=== PATIENT | male | born 1945 | race African-American/Black ===

== ENCOUNTER 2022-08-30 19:20 | Inpatient (IN) | payer MEDICARE, MEDICAID, OTHER ==
[~2022-08-30] VITALS: Ht 170.2 cm; Wt 680.4 kg
[2022-08-30 21:33] LABS: CHLORIDE 103 mEq/L (98-107)
[2022-08-30 21:42] LABS: ETHANOL BLOOD < 10 mg/dL; HEMATOCRIT. 34.2 % (42.0-52.0); HEMOGLOBIN. 10.8 g/dL (14.0-18.0); MEAN CORPUSCULAR HEMOGLOBIN 28.1 pg (28.0-32.0); MEAN CORPUSCULAR VOLUME 88.6 fL (80.0-94.0); MEAN PLATELET VOLUME 7.5 fl (7.4-10.4); PLATELET 208 x1000/uL (130-400); RED BLOOD CELL COUNT 3.85 mill/uL (4.7-6.1); RED CELL DISTRIBUTION WIDTH 17.3 % (11.6-14.6)
[2022-08-30] MEDS ORDERED: AZITHROMYCIN 500MG/250ML 250 ML IV NR (21:45)
[2022-08-30 22:10] LABS: PLATELET ESTIMATE NORMAL
[2022-08-30] MEDS ORDERED: ASPIRIN 325MG EC TABLET PO NR (22:45)
[2022-08-31] MEDS ORDERED: MAGNESIUM/ALUMINUM HYDROXIDE/SIMETHICONE 30ML UDC PO PRN
[2022-08-31] MEDS ORDERED: DOCUSATE SODIUM 100MG CAPSULE PO PRN
[2022-08-31] MEDS ORDERED: CLONIDINE 0.1MG TABLET PO PRN
[2022-08-31] MEDS ORDERED: GUAIFENESIN 200MG/10ML SUGAR FREE UDC PO PRN
[2022-08-31] MEDS ORDERED: ACETAMINOPHEN 325MG TABLET PO PRN ×2
[2022-08-31] MEDS ORDERED: IPRATROPIUM/ALBUTEROL 0.5-3(2.5)MG/3ML NEB NEB PRN
[2022-08-31] MEDS ORDERED: ONDANSETRON HCL 4MG/2ML INJ IV PRN
[2022-08-31] MEDS ORDERED: AMIO400T11 PO (03:02)
[2022-08-31] MEDS ORDERED: TAMS-11 ORI (03:02)
[2022-08-31] MEDS ORDERED: APIX5TAB PO (03:02)
[2022-08-31] MEDS ORDERED: CARV3.1242 PO (03:02)
[2022-08-31] MEDS ORDERED: ONDA4TAB50 PO (03:02)
[2022-08-31] MEDS ORDERED: LEVO50TA8 PO (03:02)
[2022-08-31] MEDS ORDERED: LATA2.5D14 EACHEYE (03:02)
[2022-08-31] MEDS ORDERED: MIRT-89 PO (03:02)
[2022-08-31] MEDS: PANTOPRAZOLE 40MG DR TABLET PO SCH (06:41)
[2022-08-31] MEDS: LEVOTHYROXINE SODIUM 50MCG TABLET PO SCH (06:41)
[2022-08-31 06:49] VITALS: BP 130/76
[2022-08-31 07:44] LABS: BASOPHILS % 0.5 % (0.0-2.0); EOSINOPHILS % 3.9 % (0.0-5.0); HEMATOCRIT. 30.8 % (42.0-52.0); LYMPHOCYTES % 34.5 % (20.0-50.0); MEAN CORPUSCULAR HEMOGLOBIN 28.2 pg (28.0-32.0); MEAN CORPUSCULAR VOLUME 86.9 fL (80.0-94.0); MEAN PLATELET VOLUME 7.5 fl (7.4-10.4); MONOCYTES % 14.4 % (2.0-8.0); NEUTROPHILS % 46.7 % (40.0-76.0); PLATELET 222 x1000/uL (130-400); RED BLOOD CELL COUNT 3.54 mill/uL (4.7-6.1); RED CELL DISTRIBUTION WIDTH 16.7 % (11.6-14.6)
[2022-08-31 08:27] VITALS: BP 104/62
[2022-08-31] MEDS ORDERED: LATANOPROST 0.005% OPHTH DROPS 2.5ML EACHEYE SCH (09:00)
[2022-08-31 09:09] LABS: CHLORIDE 104 mEq/L (98-107)
[2022-08-31 09:24] LABS: CREATINE KINASE 45 IU/L (39-308); HDL CHOLESTEROL 70 mg/dL (40-59); LDL CHOLESTEROL 82 mg/dL (5-100); T4 FREE 1.67 ng/dL (0.76-1.46); TOTAL IRON BINDING CAPACITY 341 ug/dL (250-450)
[2022-08-31] MEDS: CARVEDILOL 3.125 MG TABLET PO SCH ×2 (09:43→17:00)
[2022-08-31] MEDS: TAMSULOSIN HCL 0.4MG SR CAPSULE PO SCH (09:43)
[2022-08-31] MEDS: APIXABAN 5 MG TABLET PO SCH ×2 (09:43→17:34)
[2022-08-31] MEDS: AMIODARONE HCL 200 MG TABLET PO SCH (09:44)
[2022-08-31 09:49] LABS: FOLIC ACID (FOLATE) SERUM 3.4 ng/mL (>5.38)
[2022-08-31] MEDS ORDERED: IPRATROPIUM BROMIDE (0.02%) 0.5MG/2.5ML NEB HHN PRN (10:30)
[2022-08-31] MEDS ORDERED: ALBUTEROL (0.083%) 2.5MG/3ML NEB HHN PRN (10:30)
[2022-08-31 11:51] LABS: CLARITY URINE CLEAR (CLEAR); COLOR URINE YELLOW (YELLOW); KETONES URINE NEGATIVE (NEGATIVE); LEUKOCYTE ESTERASE URINE 3+ (NEGATIVE); NITRITE URINE POSITIVE (NEGATIVE); OCCULT BLOOD URINE NEGATIVE (NEGATIVE); PH URINE 6.5 (4.5-8.0); PROTEIN URINE NEGATIVE (NEGATIVE); SPECIFIC GRAVITY URINE 1.012 (1.005-1.030); UROBILINOGEN URINE 0.2 E.U./dL (0.2-1.0)
[2022-08-31 12:18] LABS: *AMPHETAMINES SCREEN URINE NEGATIVE (NEGATIVE); *BARBITURATES SCREEN URINE NEGATIVE (NEGATIVE); *BENZODIAZEPINES SCREEN URINE NEGATIVE (NEGATIVE); *COCAINE SCREEN URINE NEGATIVE (NEGATIVE); CANNABINOID URINE SCREEN NEGATIVE (NEGATIVE); METHADONE URINE SCREEN NEGATIVE (NEGATIVE); OPIATES URINE SCREEN NEGATIVE (NEGATIVE); PHENCYCLIDINE URINE SCREEN NEGATIVE (NEGATIVE)
[2022-08-31 12:25] VITALS: BP 104/66
[2022-08-31] MEDS: SODIUM CHLORIDE 0.9% 1,000 ML IV SCH ×3 (12:51→21:04)
[2022-08-31] MEDS: CEFTRIAXONE 1,000 MG in DEXTROSE 5% WATER 50 ML IV SCH (12:51)
[2022-08-31 16:06] VITALS: BP 98/54
[2022-08-31 17:02] LABS: CREATINE KINASE 72 IU/L (39-308)
[2022-08-31 20:00] VITALS: BP 101/66
[2022-08-31] MEDS: LATANOPROST 0.005% OPHTH DROPS 2.5ML EACHEYE SCH (21:04)
[2022-08-31] MEDS: MIRTAZAPINE 15MG TABLET PO SCH (21:04)
[2022-09-01] VITALS (7 sets, daily range): BP systolic 100–118; BP diastolic 57–64
[2022-09-01] MEDS: PANTOPRAZOLE 40MG DR TABLET PO SCH (06:02)
[2022-09-01] MEDS: SODIUM CHLORIDE 0.9% 1,000 ML IV SCH (06:03)
[2022-09-01] MEDS: LEVOTHYROXINE SODIUM 50MCG TABLET PO SCH (06:03)
[2022-09-01] MEDS: AMIODARONE HCL 200 MG TABLET PO SCH (08:57)
[2022-09-01] MEDS: TAMSULOSIN HCL 0.4MG SR CAPSULE PO SCH (08:57)
[2022-09-01] MEDS: CARVEDILOL 3.125 MG TABLET PO SCH ×2 (08:57→17:20)
[2022-09-01] MEDS: APIXABAN 5 MG TABLET PO SCH ×2 (08:57→17:20)
[2022-09-01] MEDS: CEFTRIAXONE 1,000 MG in DEXTROSE 5% WATER 50 ML IV SCH (13:31)
[2022-09-01] MEDS: LATANOPROST 0.005% OPHTH DROPS 2.5ML EACHEYE SCH (22:21)
[2022-09-01] MEDS: MIRTAZAPINE 15MG TABLET PO SCH (22:22)
[2022-09-01] MEDS ORDERED: CEFEPIME 1,000 MG in DEXTROSE 5% WATER 50 ML IV SCH (23:00)
[2022-09-02] VITALS: BP 108/69
[2022-09-02] MEDS: LEVOTHYROXINE SODIUM 50MCG TABLET PO SCH (07:18)
[2022-09-02 08:00] VITALS: BP 102/55
[2022-09-02] MEDS: CARVEDILOL 3.125 MG TABLET PO SCH ×2 (09:00→17:00)
[2022-09-02] MEDS: AMIODARONE HCL 200 MG TABLET PO SCH (09:00)
[2022-09-02] MEDS: APIXABAN 5 MG TABLET PO SCH ×2 (10:01→17:42)
[2022-09-02] MEDS: TAMSULOSIN HCL 0.4MG SR CAPSULE PO SCH (10:01)
[2022-09-02] MEDS: FAMOTIDINE 20MG TABLET PO SCH (10:01)
[2022-09-02 12:00] VITALS: BP 110/67
[2022-09-02 16:00] VITALS: BP 102/59
[2022-09-02 20:00] VITALS: BP 104/42
[2022-09-02] MEDS: MEROPENEM 1,000 MG in SODIUM CHLORIDE 0.9% 100 ML IV SCH (20:18)
[2022-09-02] MEDS: LATANOPROST 0.005% OPHTH DROPS 2.5ML EACHEYE SCH (20:47)
[2022-09-02] MEDS: MIRTAZAPINE 15MG TABLET PO SCH (20:47)
[2022-09-03] VITALS: BP 130/60
[2022-09-03 04:00] VITALS: BP 112/53
[2022-09-03] MEDS: MEROPENEM 1,000 MG in SODIUM CHLORIDE 0.9% 100 ML IV SCH (05:49)
[2022-09-03] MEDS: LEVOTHYROXINE SODIUM 50MCG TABLET PO SCH (05:49)
[2022-09-03 08:00] VITALS: BP 99/53
[2022-09-03] MEDS: CARVEDILOL 3.125 MG TABLET PO SCH ×2 (09:00→16:27)
[2022-09-03] MEDS: AMIODARONE HCL 200 MG TABLET PO SCH (09:00)
[2022-09-03] MEDS: FAMOTIDINE 20MG TABLET PO SCH (09:25)
[2022-09-03] MEDS: TAMSULOSIN HCL 0.4MG SR CAPSULE PO SCH (09:25)
[2022-09-03] MEDS: APIXABAN 5 MG TABLET PO SCH ×2 (09:25→17:35)
[2022-09-03 12:00] VITALS: BP 113/56
[2022-09-03 16:00] VITALS: BP 101/54
[2022-09-03] MEDS: MEROPENEM-0.9% SODIUM CHLORIDE 50 ML IV SCH (17:36)
[2022-09-03 20:00] VITALS: BP 102/55
[2022-09-03] MEDS: LATANOPROST 0.005% OPHTH DROPS 2.5ML EACHEYE SCH (20:44)
[2022-09-03] MEDS: MIRTAZAPINE 15MG TABLET PO SCH (20:44)
[2022-09-04] VITALS: BP 102/55
[2022-09-04 04:00] VITALS: BP 97/46
[2022-09-04] MEDS: MEROPENEM-0.9% SODIUM CHLORIDE 50 ML IV SCH (05:11)
[2022-09-04] MEDS: LEVOTHYROXINE SODIUM 50MCG TABLET PO SCH (05:12)
[2022-09-04 08:00] VITALS: BP 105/55
[2022-09-04] MEDS: CARVEDILOL 3.125 MG TABLET PO SCH (09:00)
[2022-09-04] MEDS: APIXABAN 5 MG TABLET PO SCH (09:32)
[2022-09-04] MEDS: FAMOTIDINE 20MG TABLET PO SCH (09:32)
[2022-09-04] MEDS: TAMSULOSIN HCL 0.4MG SR CAPSULE PO SCH (09:32)
[2022-09-04] MEDS: AMIODARONE HCL 200 MG TABLET PO SCH (09:33)
[2022-09-04 12:00] VITALS: BP 104/52
[2022-09-04 16:00] VITALS: BP 104/62
[2022-09-04 18:10] VITALS: BP 104/62
== END 2022-09-04 19:08 | DRG 689 ==
LOC: ER 19:20 → 7EST 23:09 → EDBEDREQTM 23:13 → EDBEDREQ 23:13 → SUPCPDRO 23:32 → UNDODISIN 09-04 18:22
PROVIDERS: ADMIT Internal Medicine; ATTEND Internal Medicine
DX: N30.00 Acute cystitis without hematuria (principal); G92.8 Other toxic encephalopathy; I13.0 Hypertensive heart and chronic kidney disease with heart failure and stage 1 through stage 4 chronic kidney disease, or unspecified chronic kidney disease; E46 Unspecified protein-calorie malnutrition; N17.9 Acute kidney failure, unspecified; I24.8 Other forms of acute ischemic heart disease; I50.20 Unspecified systolic (congestive) heart failure; I42.9 Cardiomyopathy, unspecified; Z68.45 Body mass index [BMI] 70 or greater, adult; E03.9 Hypothyroidism, unspecified; D72.819 Decreased white blood cell count, unspecified; N40.0 Benign prostatic hyperplasia without lower urinary tract symptoms; F03.90 Unspecified dementia, unspecified severity, without behavioral disturbance, psychotic disturbance, mood disturbance, and anxiety; I25.10 Atherosclerotic heart disease of native coronary artery without angina pectoris; I48.91 Unspecified atrial fibrillation; B96.20 Unspecified Escherichia coli [E. coli] as the cause of diseases classified elsewhere; K21.9 Gastro-esophageal reflux disease without esophagitis; N18.9 Chronic kidney disease, unspecified; Z86.73 Personal history of transient ischemic attack (TIA), and cerebral infarction without residual deficits; Z95.0 Presence of cardiac pacemaker; Z88.0 Allergy status to penicillin; E11.22 Type 2 diabetes mellitus with diabetic chronic kidney disease; Z79.01 Long term (current) use of anticoagulants; Z79.899 Other long term (current) drug therapy
CPT/HCPCS: 36415; 71045; 71250; 80053; 80061; 80305; 80320; 81003; 82550; 82607; 82728; 82746; 82962; 83036; 83540; 83550; 83605; 83735; 83880; 84145; 84439; 84443; 84484; 85025; 87186; 92610; 93005; 93306; 97110; 97162; 97530; 99285; C1893; J0456; J0692; J0696; J2185; J7050; J7060; G0480

== ENCOUNTER 2023-03-13 01:36 | Inpatient (IN) | payer MEDICARE, MEDICAID ==
[~2023-03-13] VITALS: Ht 170.2 cm; Wt 48.8 kg
[~2023-03-13 01:36] MED LIST: AMIO400T11 PO; APIX5TAB PO; CARV3.1242 PO; LATA2.5D14 EACHEYE; LEVO50TA8 PO; MIRT-89 PO; ONDA4TAB50 PO; TAMS-11 ORI
[2023-03-13] MEDS ORDERED: SODIUM CHLORIDE 0.9% 500 ML IV ONE (02:00)
[2023-03-13 05:58] LABS: CLARITY URINE TURBID (CLEAR); COLOR URINE ORANGE (YELLOW); GLUCOSE URINE NEGATIVE (NEGATIVE); KETONES URINE NEGATIVE (NEGATIVE); LEUKOCYTE ESTERASE URINE 3+ (NEGATIVE); NITRITE URINE POSITIVE (NEGATIVE); OCCULT BLOOD URINE 3+ (NEGATIVE); PROTEIN URINE 1+ (NEGATIVE); SPECIFIC GRAVITY URINE 1.022 (1.005-1.030); UROBILINOGEN URINE 0.2 E.U./dL (0.2-1.0)
[2023-03-13 06:01] LABS: BASOPHILS % 0.2 % (0.0-2.0); EOSINOPHILS % 0.7 % (0.0-5.0); HEMATOCRIT. 37.8 % (42.0-52.0); HEMOGLOBIN. 11.7 g/dL (14.0-18.0); LYMPHOCYTES % 17.6 % (20.0-50.0); MEAN CORPUSCULAR HEMOGLOBIN 29.4 pg (28.0-32.0); MEAN CORPUSCULAR HGB CONC 30.9 g/dL (31.0-37.0); MEAN CORPUSCULAR VOLUME 95.2 fL (80.0-94.0); MEAN PLATELET VOLUME 9.2 fl (7.4-10.4); MONOCYTES % 8.4 % (2.0-8.0); NEUTROPHILS % 73.1 % (40.0-76.0); PLATELET 157 x1000/uL (130-400); RED BLOOD CELL COUNT 3.97 mill/uL (4.7-6.1); RED CELL DISTRIBUTION WIDTH 21.1 % (11.6-14.6); WHITE BLOOD COUNT 5.5 x1000/uL (4.5-11.0)
[2023-03-13 06:08] LABS: CHLORIDE 125 mEq/L (98-107); INDEX HEMOLYSI 1 (1-3); INDEX ICTERIC 1 (1-4); INDEX LIPEMIC 1 (1-3); POTASSIUM 3.8 mEq/L (3.5-5.1)
[2023-03-13 06:11] LABS: INR 1.2; PROTHROMBIN TIME 12.3 sec (9.6-11.0)
[2023-03-13] MEDS ORDERED: LEVOFLOXACIN 500MG PREMIX 100 ML IV NR (06:15)
[2023-03-13 06:16] LABS: BACTERIA URINE 3+; RBC URINE TNTC /hpf (0-2); SQUAMOUS EPITHELIAL CELL URINE 1+ /lpf (RARE/1+); WBC URINE TNTC /hpf (0-2)
[2023-03-13 06:18] LABS: ALANINE AMINOTRANSFERASE 18 IU/L (13-61); ALBUMIN 1.9 g/dL (3.4-5.0); ASPARTATE AMINOTRANSFERASE 20 IU/L (15-37); BILIRUBIN TOTAL 0.4 mg/dL (0.1-1.0); CALCIUM 8.2 mg/dL (8.5-10.1); CARBON DIOXIDE 33 mEq/L (21-32); CREATINE KINASE 21 IU/L (39-308); CREATININE 1.1 mg/dL (0.6-1.3); ETHANOL BLOOD < 10 mg/dL (<10); GLUCOSE 81 mg/dL (70-105); NT PRO B-TYPE NATRIURETIC PEP 1875 pg/mL (5-125); PROTEIN TOTAL 6.2 g/dL (6.0-8.3); UREA NITROGEN BLOOD 27 mg/dL (7-21)
[2023-03-13 06:20] LABS: *AMPHETAMINES SCREEN URINE NEGATIVE (NEGATIVE); *BARBITURATES SCREEN URINE NEGATIVE (NEGATIVE); *BENZODIAZEPINES SCREEN URINE PRESUMTIVE POSITIVE (NEGATIVE); *COCAINE SCREEN URINE NEGATIVE (NEGATIVE); CANNABINOID URINE SCREEN NEGATIVE (NEGATIVE); ECSTASY MDMA SCREEN URINE NEGATIVE (NEGATIVE); METHADONE URINE SCREEN NEGATIVE (NEGATIVE); OPIATES URINE SCREEN NEGATIVE (NEGATIVE); PHENCYCLIDINE URINE SCREEN NEGATIVE (NEGATIVE)
[2023-03-13 06:32] LABS: TROPONIN I HIGH SENSITIVITY 282 ng/L (<78)
[2023-03-13 06:33] LABS: SODIUM 157 mEq/L (136-145)
[2023-03-13 13:15] VITALS: BP 92/40; PULSE 70; RESP 18; TEMP 98.1
[2023-03-13] MEDS: DEXTROSE 5% WATER 1,000 ML IV SCH (14:26)
[2023-03-13 16:00] VITALS: BP 114/60; PULSE 68; RESP 18; TEMP 98.6
[2023-03-13 20:00] VITALS: BP 107/57; PULSE 76; RESP 19; TEMP 97.3
[2023-03-13] MEDS: APIXABAN 5 MG TABLET PO SCH (20:16)
[2023-03-13] MEDS: MIRTAZAPINE 15MG TABLET PO SCH (20:16)
[2023-03-13] MEDS: AMIODARONE HCL 200 MG TABLET PO SCH (20:17)
[2023-03-13] MEDS ORDERED: DEXTROSE 50% WATER 50ML SYRINGE IV PRN (20:30)
[2023-03-13] MEDS: BLOOD SUGAR DIAGNOSTIC STRIP TEST SCH (20:34)
[2023-03-13] MEDS: INSULIN LISPRO 100 UNITS/ML SUBCUT SCH (20:34)
[2023-03-14] VITALS (7 sets, daily range): BP systolic 94–142; BP diastolic 53–83; PULSE 60–76; RESP 16–20; TEMP 96.8–98.2
[2023-03-14 06:46] LABS: BASOPHILS % 0.2 % (0.0-2.0); EOSINOPHILS % 0.9 % (0.0-5.0); HEMATOCRIT. 33.7 % (42.0-52.0); HEMOGLOBIN. 11.2 g/dL (14.0-18.0); LYMPHOCYTES % 18.9 % (20.0-50.0); MEAN CORPUSCULAR HGB CONC 33.2 g/dL (31.0-37.0); MEAN CORPUSCULAR VOLUME 93.3 fL (80.0-94.0); MONOCYTES % 7.7 % (2.0-8.0); NEUTROPHILS % 72.3 % (40.0-76.0); PLATELET 165 x1000/uL (130-400); RED BLOOD CELL COUNT 3.61 mill/uL (4.7-6.1); RED CELL DISTRIBUTION WIDTH 20.7 % (11.6-14.6); WHITE BLOOD COUNT 4.5 x1000/uL (4.5-11.0)
[2023-03-14] MEDS: BLOOD SUGAR DIAGNOSTIC STRIP TEST SCH ×4 (07:08→21:02)
[2023-03-14] MEDS: INSULIN LISPRO 100 UNITS/ML SUBCUT SCH ×4 (07:43→21:00)
[2023-03-14 08:59] LABS: CHLORIDE 120 mEq/L (98-107); INDEX HEMOLYSI 1 (1-3); INDEX ICTERIC 1 (1-4); INDEX LIPEMIC 1 (1-3); POTASSIUM 3.7 mEq/L (3.5-5.1); SODIUM 152 mEq/L (136-145)
[2023-03-14] MEDS: APIXABAN 5 MG TABLET PO SCH ×2 (08:59→17:59)
[2023-03-14] MEDS: AMIODARONE HCL 200 MG TABLET PO SCH (08:59)
[2023-03-14] MEDS: CARVEDILOL 3.125 MG TABLET PO SCH ×2 (09:00→17:59)
[2023-03-14] MEDS: TAMSULOSIN HCL 0.4MG SR CAPSULE PO SCH (09:00)
[2023-03-14] MEDS ORDERED: LEVOTHYROXINE SODIUM 50MCG TABLET PO SCH (09:00)
[2023-03-14 09:09] LABS: CALCIUM 8.1 mg/dL (8.5-10.1); CARBON DIOXIDE 29 mEq/L (21-32); GLUCOSE 70 mg/dL (70-105); PHOSPHORUS 2.7 mg/dL (2.5-4.9); UREA NITROGEN BLOOD 25 mg/dL (7-21)
[2023-03-14] MEDS: CEFEPIME 1,000 MG in DEXTROSE 5% WATER 50 ML IV SCH ×2 (11:25→22:00)
[2023-03-14] MEDS ORDERED: LIDOCAINE HCL 1% 10 MG/ML 10ML VIAL ONE (13:04)
[2023-03-14] MEDS ORDERED: VANCOMYCIN 1G PREMIX 200 ML IV NR (13:30)
[2023-03-14] MEDS ORDERED: IOHEXOL-300 50 ML BOTTLE IV ONE (14:09)
[2023-03-14] MEDS: DEXTROSE 5% WATER 1,000 ML IV SCH ×2 (15:10→22:10)
[2023-03-14] MEDS: MIRTAZAPINE 15MG TABLET PO SCH (21:00)
[2023-03-14] MEDS ORDERED: HYDROCODONE/ACETAMINOPHEN 5/325MG TABLET PO PRN (22:00)
[2023-03-14] MEDS ORDERED: ZOLPIDEM TARTRATE 5MG TABLET PO PRN (22:00)
[2023-03-14] MEDS ORDERED: NALOXONE HCL 0.4MG/ML VIAL IV PRN (22:00)
[2023-03-15] VITALS (7 sets, daily range): BP systolic 82–141; BP diastolic 44–66; PULSE 59–80; RESP 18–19; TEMP 96.1–97.5
[2023-03-15] MEDS ORDERED: VANCOMYCIN 500MG PREMIX 100 ML IV SCH (01:00)
[2023-03-15] MEDS: DEXTROSE 5% WATER 1,000 ML IV SCH (04:30)
[2023-03-15] MEDS: BLOOD SUGAR DIAGNOSTIC STRIP TEST SCH ×4 (07:40→20:52)
[2023-03-15] MEDS: INSULIN LISPRO 100 UNITS/ML SUBCUT SCH ×4 (08:10→20:52)
[2023-03-15] MEDS: AMIODARONE HCL 200 MG TABLET PO SCH (08:27)
[2023-03-15] MEDS: APIXABAN 5 MG TABLET PO SCH ×2 (08:28→16:13)
[2023-03-15] MEDS: CARVEDILOL 3.125 MG TABLET PO SCH ×2 (08:28→16:13)
[2023-03-15] MEDS: TAMSULOSIN HCL 0.4MG SR CAPSULE PO SCH (08:28)
[2023-03-15] MEDS: LEVOTHYROXINE SODIUM 50MCG TABLET PO SCH (08:28)
[2023-03-15 08:44] LABS: ALBUMIN 2.1 g/dL (3.4-5.0)
[2023-03-15 08:52] LABS: PREALBUMIN 9.9 mg/dL (20.0-40.0)
[2023-03-15] MEDS ORDERED: BUPROPION HCL 150MG SR TABLET PO SCH (09:00)
[2023-03-15] MEDS: CEFEPIME 1,000 MG in DEXTROSE 5% WATER 50 ML IV SCH (09:58)
[2023-03-15] MEDS: SULFAMETHOXAZOLE/TRIMETHOPRIM 800/160MG TABLET PO SCH ×2 (13:06→20:43)
[2023-03-15 16:21] LABS: BASOPHILS % 0.1 % (0.0-2.0); EOSINOPHILS % 0.2 % (0.0-5.0); HEMATOCRIT. 35.2 % (42.0-52.0); HEMOGLOBIN. 11.3 g/dL (14.0-18.0); LYMPHOCYTES % 12.2 % (20.0-50.0); MEAN CORPUSCULAR HEMOGLOBIN 30.3 pg (28.0-32.0); MEAN CORPUSCULAR VOLUME 94.5 fL (80.0-94.0); MEAN PLATELET VOLUME 9.2 fl (7.4-10.4); MONOCYTES % 9.3 % (2.0-8.0); NEUTROPHILS % 78.2 % (40.0-76.0); PLATELET 146 x1000/uL (130-400); RED BLOOD CELL COUNT 3.73 mill/uL (4.7-6.1); RED CELL DISTRIBUTION WIDTH 20.7 % (11.6-14.6); WHITE BLOOD COUNT 5.5 x1000/uL (4.5-11.0)
[2023-03-15 16:36] LABS: CHLORIDE 121 mEq/L (98-107); INDEX HEMOLYSI 1 (1-3); INDEX ICTERIC 1 (1-4); INDEX LIPEMIC 1 (1-3); POTASSIUM 3.5 mEq/L (3.5-5.1); SODIUM 151 mEq/L (136-145)
[2023-03-15 16:46] LABS: ALANINE AMINOTRANSFERASE 22 IU/L (13-61); ALBUMIN 1.9 g/dL (3.4-5.0); ASPARTATE AMINOTRANSFERASE 36 IU/L (15-37); BILIRUBIN TOTAL 0.4 mg/dL (0.1-1.0); CALCIUM 8.1 mg/dL (8.5-10.1); CARBON DIOXIDE 25 mEq/L (21-32); CREATININE 1.1 mg/dL (0.6-1.3); GLUCOSE 63 mg/dL (70-105); PROTEIN TOTAL 5.9 g/dL (6.0-8.3); UREA NITROGEN BLOOD 28 mg/dL (7-21)
[2023-03-15] MEDS ORDERED: GLUCAGON,HUMAN RECOMBINANT 1MG/VIAL IM NR (18:30)
[2023-03-15] MEDS: MIRTAZAPINE 15MG TABLET PO SCH (20:43)
[2023-03-16] VITALS: BP 97/56; PULSE 61; RESP 20; TEMP 96.6
[2023-03-16 04:00] VITALS: BP 94/54; PULSE 66; RESP 20; TEMP 96.9
[2023-03-16 06:49] LABS: EOSINOPHILS % 0.1 % (0.0-5.0); HEMATOCRIT. 37.2 % (42.0-52.0); HEMOGLOBIN. 12.4 g/dL (14.0-18.0); MEAN CORPUSCULAR HEMOGLOBIN 31.3 pg (28.0-32.0); MEAN CORPUSCULAR HGB CONC 33.4 g/dL (31.0-37.0); MEAN CORPUSCULAR VOLUME 93.6 fL (80.0-94.0); MEAN PLATELET VOLUME 9.3 fl (7.4-10.4); MONOCYTES % 4.2 % (2.0-8.0); NEUTROPHILS % 86.7 % (40.0-76.0); PLATELET 167 x1000/uL (130-400); RED BLOOD CELL COUNT 3.97 mill/uL (4.7-6.1); RED CELL DISTRIBUTION WIDTH 21.1 % (11.6-14.6); WHITE BLOOD COUNT 6.5 x1000/uL (4.5-11.0)
[2023-03-16 07:36] LABS: CHLORIDE 123 mEq/L (98-107); INDEX HEMOLYSI 1 (1-3); INDEX ICTERIC 1 (1-4); INDEX LIPEMIC 1 (1-3); POTASSIUM 3.2 mEq/L (3.5-5.1); SODIUM 155 mEq/L (136-145)
[2023-03-16 07:37] LABS: CALCIUM 8.3 mg/dL (8.5-10.1); UREA NITROGEN BLOOD 33 mg/dL (7-21)
[2023-03-16 07:40] LABS: CARBON DIOXIDE 26 mEq/L (21-32); CREATININE 1.2 mg/dL (0.6-1.3); GLUCOSE 71 mg/dL (70-105)
[2023-03-16] MEDS: BLOOD SUGAR DIAGNOSTIC STRIP TEST SCH ×4 (07:40→20:43)
[2023-03-16 08:00] VITALS: BP 83/53; PULSE 63; RESP 18; TEMP 97.1
[2023-03-16] MEDS: INSULIN LISPRO 100 UNITS/ML SUBCUT SCH ×4 (08:10→20:43)
[2023-03-16] MEDS: SULFAMETHOXAZOLE/TRIMETHOPRIM 800/160MG TABLET PO SCH ×2 (08:18→20:43)
[2023-03-16] MEDS: LEVOTHYROXINE SODIUM 50MCG TABLET PO SCH (08:18)
[2023-03-16] MEDS: TAMSULOSIN HCL 0.4MG SR CAPSULE PO SCH (08:18)
[2023-03-16] MEDS: AMIODARONE HCL 200 MG TABLET PO SCH (08:19)
[2023-03-16] MEDS: MIDODRINE HCL 5MG TABLET PO SCH ×3 (08:19→16:36)
[2023-03-16] MEDS: APIXABAN 5 MG TABLET PO SCH ×2 (08:19→16:36)
[2023-03-16] MEDS: CARVEDILOL 3.125 MG TABLET PO SCH (08:19)
[2023-03-16] MEDS ORDERED: MIDODRINE HCL 5MG TABLET PO SCH (10:00)
[2023-03-16] MEDS ORDERED: LIDOCAINE HCL 1% 10 MG/ML 10ML VIAL ONE (10:02)
[2023-03-16] MEDS ORDERED: POTASSIUM CHLORIDE 20MEQ/PACKET GT NR (10:15)
[2023-03-16] MEDS ORDERED: HEPARIN 100 UNITS/1 ML VIAL IVF PRN (10:45)
[2023-03-16 11:56] VITALS: BP 84/53; PULSE 65; RESP 18; TEMP 97.1
[2023-03-16] MEDS: DEXTROSE 5% WATER 1,000 ML IV SCH ×2 (12:02→20:43)
[2023-03-16 12:40] LABS: PHOSPHORUS 4.1 mg/dL (2.5-4.9)
[2023-03-16 15:31] VITALS: BP 89/51; PULSE 61; RESP 18; TEMP 97.1
[2023-03-16] MEDS: LACTOBACILLUS GG CAPSULE PO SCH (17:12)
[2023-03-16 20:00] VITALS: BP 100/59; PULSE 62; RESP 20; TEMP 96.5
[2023-03-16] MEDS: MIRTAZAPINE 15MG TABLET PO SCH (20:43)
[2023-03-17] VITALS: BP 102/50; PULSE 64; RESP 20; TEMP 96.8
[2023-03-17 04:00] VITALS: BP 98/52; PULSE 67; RESP 18; TEMP 97.7
[2023-03-17 05:27] LABS: BASOPHILS % 0.1 % (0.0-2.0); EOSINOPHILS % 0.1 % (0.0-5.0); HEMATOCRIT. 37.4 % (42.0-52.0); HEMOGLOBIN. 12.2 g/dL (14.0-18.0); LYMPHOCYTES % 8.3 % (20.0-50.0); MEAN CORPUSCULAR HEMOGLOBIN 30.5 pg (28.0-32.0); MEAN CORPUSCULAR HGB CONC 32.6 g/dL (31.0-37.0); MEAN CORPUSCULAR VOLUME 93.7 fL (80.0-94.0); MEAN PLATELET VOLUME 9.4 fl (7.4-10.4); MONOCYTES % 5.3 % (2.0-8.0); NEUTROPHILS % 86.2 % (40.0-76.0); PLATELET 148 x1000/uL (130-400); RED BLOOD CELL COUNT 3.99 mill/uL (4.7-6.1); RED CELL DISTRIBUTION WIDTH 21.5 % (11.6-14.6); WHITE BLOOD COUNT 7.3 x1000/uL (4.5-11.0)
[2023-03-17] MEDS: BLOOD SUGAR DIAGNOSTIC STRIP TEST SCH ×4 (07:40→21:20)
[2023-03-17 08:00] VITALS: BP_SYST 89; BP_SYST 94; BP_DIAS 51; PULSE 69; RESP 18; TEMP 97.8
[2023-03-17] MEDS: INSULIN LISPRO 100 UNITS/ML SUBCUT SCH ×4 (08:10→21:00)
[2023-03-17] MEDS: MIDODRINE HCL 5MG TABLET PO SCH ×3 (08:48→16:36)
[2023-03-17] MEDS: AMIODARONE HCL 200 MG TABLET PO SCH (08:49)
[2023-03-17] MEDS: SULFAMETHOXAZOLE/TRIMETHOPRIM 800/160MG TABLET PO SCH ×2 (08:49→21:20)
[2023-03-17] MEDS: APIXABAN 5 MG TABLET PO SCH ×2 (08:49→17:21)
[2023-03-17] MEDS: TAMSULOSIN HCL 0.4MG SR CAPSULE PO SCH (08:49)
[2023-03-17] MEDS: LEVOTHYROXINE SODIUM 50MCG TABLET PO SCH (08:51)
[2023-03-17 10:04] LABS: POTASSIUM 3.3 mEq/L (3.5-5.1)
[2023-03-17 10:06] LABS: CALCIUM 7.7 mg/dL (8.5-10.1)
[2023-03-17 10:10] LABS: CREATININE 1.4 mg/dL (0.6-1.3)
[2023-03-17 12:00] VITALS: BP 93/54; PULSE 60; RESP 17; TEMP 97.2
[2023-03-17] MEDS: DEXTROSE 5% WATER 1,000 ML IV SCH (15:41)
[2023-03-17 16:00] VITALS: BP 95/59; PULSE 59; RESP 17; TEMP 97.6
[2023-03-17] MEDS: LACTOBACILLUS GG CAPSULE PO SCH (16:37)
[2023-03-17 20:00] VITALS: BP 101/46; PULSE 60; RESP 18; TEMP 97.5
[2023-03-17] MEDS: MIRTAZAPINE 15MG TABLET PO SCH (21:20)
[2023-03-18] VITALS: BP 94/49; PULSE 66; RESP 20; TEMP 97.9
[2023-03-18 04:00] VITALS: BP 93/46; PULSE 62; RESP 18; TEMP 97.7
[2023-03-18] MEDS: DEXTROSE 5% WATER 1,000 ML IV SCH ×2 (06:33→17:01)
[2023-03-18] MEDS: BLOOD SUGAR DIAGNOSTIC STRIP TEST SCH ×3 (06:33→16:59)
[2023-03-18 08:00] VITALS: BP 91/27; PULSE 47; RESP 18; TEMP 96
[2023-03-18] MEDS: LEVOTHYROXINE SODIUM 50MCG TABLET PO SCH (08:07)
[2023-03-18] MEDS: TAMSULOSIN HCL 0.4MG SR CAPSULE PO SCH (08:07)
[2023-03-18] MEDS: APIXABAN 5 MG TABLET PO SCH ×2 (08:07→16:59)
[2023-03-18] MEDS: MIDODRINE HCL 5MG TABLET PO SCH ×3 (08:08→17:00)
[2023-03-18] MEDS: AMIODARONE HCL 200 MG TABLET PO SCH (08:08)
[2023-03-18] MEDS: SULFAMETHOXAZOLE/TRIMETHOPRIM 800/160MG TABLET PO SCH (08:08)
[2023-03-18] MEDS: INSULIN LISPRO 100 UNITS/ML SUBCUT SCH ×3 (08:10→17:00)
[2023-03-18 12:00] VITALS: BP 92/31; PULSE 50; RESP 18; TEMP 97
[2023-03-18 13:16] VITALS: BP 92/31; PULSE 50; TEMP 97; O2SAT 98
[2023-03-18 16:00] VITALS: BP 89/30; PULSE 42; RESP 18; TEMP 97.2
[2023-03-18] MEDS: LACTOBACILLUS GG CAPSULE PO SCH (17:01)
== END 2023-03-18 18:25 | DRG 640 ==
LOC: ER 01:36 → 7WST 06:05
PROVIDERS: ADMIT Internal Medicine; ATTEND Internal Medicine
PROC: 02HV33Z Insertion of Infusion Device into Superior Vena Cava, Percutaneous Approach (ICD-10-PCS; principal; 2023-03-14)
PROC: B5181ZA Fluoroscopy of Superior Vena Cava using Low Osmolar Contrast, Guidance (ICD-10-PCS; 2023-03-14)
PROC: B548ZZA Ultrasonography of Superior Vena Cava, Guidance (ICD-10-PCS; 2023-03-14)
PROC: 02HV33Z Insertion of Infusion Device into Superior Vena Cava, Percutaneous Approach (ICD-10-PCS; 2023-03-16)
PROC: B548ZZA Ultrasonography of Superior Vena Cava, Guidance (ICD-10-PCS; 2023-03-16)
DX: E87.0 Hyperosmolality and hypernatremia (principal); E43 Unspecified severe protein-calorie malnutrition; N39.0 Urinary tract infection, site not specified; I50.22 Chronic systolic (congestive) heart failure; R78.81 Bacteremia; Z68.1 Body mass index [BMI] 19.9 or less, adult; E86.0 Dehydration; J44.9 Chronic obstructive pulmonary disease, unspecified; B96.20 Unspecified Escherichia coli [E. coli] as the cause of diseases classified elsewhere; F02.80 Dementia in other diseases classified elsewhere, unspecified severity, without behavioral disturbance, psychotic disturbance, mood disturbance, and anxiety; G30.9 Alzheimer's disease, unspecified; I11.0 Hypertensive heart disease with heart failure; E03.9 Hypothyroidism, unspecified; D64.9 Anemia, unspecified; I48.91 Unspecified atrial fibrillation; E11.649 Type 2 diabetes mellitus with hypoglycemia without coma; Z88.0 Allergy status to penicillin; Z95.810 Presence of automatic (implantable) cardiac defibrillator; Z85.038 Personal history of other malignant neoplasm of large intestine
CPT/HCPCS: 36415; 36573; 71045; 74176; 80048; 80053; 80305; 80320; 81003; 82040; 82533; 82550; 82962; 83036; 83605; 83735; 83880; 83935; 84100; 84134; 84145; 84484; 85025; 87077; 87186; 93005; 93306; 93923; 99285; A6261; C1725; C1893; J0692; J1610; J1815; J1956; J3370; J3490; J7040; J7060; J7070; Q9967; A4315; G0480